=== PATIENT | female | born 1985 | race Caucasian/White ===

== ENCOUNTER 2020-09-24 04:19 | Emergency (ER) | payer BC, OTHER ==
[2020-09-24 05:02] LABS: HEMOGLOBIN 14.5 gm/dl (12.3-15.3); RED BLOOD COUNT 4.64 M/UL (4.00-5.10); WHITE BLOOD COUNT 9.5 K/UL (4.5-11.0)
[2020-09-24 05:11] LABS: BUN/CREATININE RATIO 19 (0-10)
== END 2020-09-24 07:00 | disposition home or self-care (01) ==
LOC: ER1 04:19
PROVIDERS: Family Medicine
DX: K91.840 Postprocedural hemorrhage of a digestive system organ or structure following a digestive system procedure (principal); E03.9 Hypothyroidism, unspecified
CPT/HCPCS: 36415; 80053; 85025; 85610; 99283

== ENCOUNTER → 2021-05-09 | Outpatient (CLI) | payer BC ==
[2021-05-09 12:39] LABS: HEMOGLOBIN 14.4 gm/dl (12.3-15.3); RED BLOOD COUNT 4.62 M/UL (4.00-5.10); WHITE BLOOD COUNT 8.8 K/UL (4.5-11.0)
[2021-05-09 13:23] LABS: BUN/CREATININE RATIO 14 (0-10)
== END ==
LOC: LAB 10:41
PROVIDERS: Nurse Practitioner
DX: B37.0 Candidal stomatitis (principal); E03.9 Hypothyroidism, unspecified; E78.5 Hyperlipidemia, unspecified
CPT/HCPCS: 36415; 80053; 80061; 83036; 84439; 84443; 85025

== ENCOUNTER 2021-07-07 11:08 | Emergency (ER) | payer BC ==
[~2021-07-07] VITALS: Ht 162.6 cm; Wt 72.6 kg
== END 2021-07-07 14:15 | disposition home or self-care (01) ==
LOC: ER1 11:08
DX: U07.1 COVID-19 (principal); Z23 Encounter for immunization; Z88.8 Allergy status to other drugs, medicaments and biological substances
CPT/HCPCS: 99283; M0245